=== PATIENT | female | born 1970 | race American Indian/Alaskan Native ===

== ENCOUNTER 2021-08-22 12:32 | Emergency (ER) | payer OTHER ==
[2021-08-22] MEDS ORDERED: MORPHINE 4 MG/1 ML INJ IV ONE (17:52)
[2021-08-22] MEDS ORDERED: ONDANSETRON 4 MG/2 ML INJ IV ONE (17:52)
[2021-08-22] MEDS ORDERED: SODIUM CHLORIDE 0.9% 1000 ML 1,000 ML IV ONE (17:52)
--- NOTE | 2021-08-22 17:57 | Emergency Department Report ---
ED Abdominal Pain HPI - General Chief Complaint: Abdominal Pain Stated Complaint: VOMTING Time Seen by Provider: 08/22/21 17:41 Source: patient Mode of arrival: Ambulatory Limitations: No Limitations - History of Present Illness Initial Comments: Patient is 50 years old female with no significant past medical history. Patient presented with diffuse abdominal pain, crampy in nature with no radiation. Patient stated that pain started this morning associated with nausea, vomiting and diarrhea. Patient also stated that she had some chills but no fever. Patient stated that she ate [employer] last night and she thinks it may be the reason for her symptoms. Patient did have history of partial hysterectomy and 2 before. MD Complaint: abdominal pain -: This morning Location: diffuse Radiation: none Severity: moderate Severity scale (0 -10): 5 Quality: cramping Associated Symptoms: nausea, vomiting, diarrhea - Related Data Allergies Allergy/AdvReac Type Severity Reaction Status Date / Time cephalexin [From Keflex] AdvReac Itching Verified 08/22/21 12:51 naproxen [From Aleve] AdvReac Itching Verified 08/22/21 12:51 ED Review of Systems ROS: Stated complaint: VOMTING Other details as noted in HPI Comment: All other systems reviewed and negative Constitutional: chills. denies: fever Respiratory: denies: cough, shortness of breath, SOB with exertion, SOB at rest Cardiovascular: denies: chest pain, palpitations, dyspnea on exertion Gastrointestinal: abdominal pain, nausea, vomiting, diarrhea. denies: constipat ion, hematemesis, melena Musculoskeletal: denies: back pain Neurological: denies: headache, weakness, numbness, paresthesias, confusion ED Physical Exam - General Limitations: No Limitations General appearance: alert, in no apparent distress - Head Head exam: Present: atraumatic, normocephalic, normal inspection - Eye Eye exam: Present: normal appearance - ENT ENT exam: Present: mucous membranes dry - Neck Neck exam: Present: normal inspection, full ROM. Absent: tenderness, meningismus - Respiratory Respiratory exam: Present: normal lung sounds bilaterally - Cardiovascular Cardiovascular Exam: Present: tachycardia - GI/Abdominal GI/Abdominal exam: Present: soft, normal bowel sounds. Absent: distended, tenderness, guarding, rebound, rigid, organomegaly, mass, bruit, pulsatile mass, hernia - Extremities Exam Extremities exam: Present: normal inspection, full ROM, normal capillary refill. Absent: tenderness - Back Exam Back exam: Present: normal inspection, full ROM. Absent: CVA tenderness (R), CVA tenderness (L) - Neurological Exam Neurological exam: Present: alert, oriented X3, CN II-XII intact - Psychiatric Psychiatric exam: Present: normal mood - Skin Skin exam: Present: warm, intact, normal color ED Course Vital Signs 08/22/21 12:48 Temperature 99.6 F Pulse Rate 117 H Respiratory 18 Rate Blood Pressure 166/76 [Right] O2 Sat by Pulse 100 Oximetry ED Medical Decision Making - Lab Data Result diagrams: 08/22/21 18:03 08/22/21 18:03 - Medical Decision Making Patient is 50 years old female with no significant past medical history. Patient presented with diffuse abdominal pain, crampy in nature with no radiation. Patient stated that pain started this morning associated with nausea, vomiting and diarrhea. Patient also stated that she had some chills but no fever. Patient stated that she ate [employer] last night and she thinks it may be the reason for her symptoms. Patient did have history of partial hysterectomy and 2 before. Labs reviewed and is unremarkable. Patient received morphine, Zofran and normal saline. Patient stated that she is feeling much better. No nausea or vomiting. Critical care attestation.: If time is entered above; I have spent that time in minutes in the direct care of this critically ill patient, excluding procedure time. ED Disposition Clinical Impression: Acute abdominal pain, Acute nausea with nonbilious vomiting, Acute diarrhea Disposition: HOME / SELF CARE / HOMELESS Is pt being admited?: No Condition: Stable Instructions: Abdominal Pain (ED), Abdominal Pain, Adult, [id number], Nausea and Vomiting, Adult, [id number], Diarrhea, Adult, [id number] Referrals: [facility] [Other] - 3-5 Days
[2021-08-22 18:27] LABS: Hematocrit 39.2 % (30.3-42.9); Hemoglobin 13.1 gm/dl (10.1-14.3); Mean Corpuscular HGB Conc 33 % (30-34); Mean Corpuscular Volume 81 fl (79-97); Platelet Count 345 K/mm3 (140-440); Red Blood Count 4.82 M/mm3 (3.65-5.03); Red Cell Distribution Width 13.5 % (13.2-15.2)
[2021-08-22 18:44] LABS: Alanine Aminotransferase 20 units/L (7-56); Albumin 4.5 g/dL (3.9-5); BUN/Creatinine Ratio 15; Blood Urea Nitrogen 12 mg/dL (7-17); Calcium 9.5 mg/dL (8.4-10.2); Hemolysis Index 26
[2021-08-22 18:50] LABS: Bilirubin,Direct < 0.2 mg/dL (0-0.2)
[2021-08-22 20:54] VITALS: BP 130/72
[2021-08-22 23:04] LABS: Anisocytosis 1+; Basophils % (Manual) 0 % (0.0-1.8); Eosinophils % (Manual) 0 % (0.0-4.3); Platelet Estimate Consistent w Auto; Total Cells Counted 100
== END 2021-08-22 20:52 | disposition home or self-care (01) ==
LOC: ED 12:32
DX: R10.9 Unspecified abdominal pain (principal); R11.2 Nausea with vomiting, unspecified; R19.7 Diarrhea, unspecified; Z88.1 Allergy status to other antibiotic agents; Z88.6 Allergy status to analgesic agent
CPT/HCPCS: 36415; 80048; 80076; 83690; 85007; 85025; 96361; 96374; 96375; 99283; J2270; J2405; J7030; Q0162